=== PATIENT | male | born 1970 | race Caucasian/White ===

== ENCOUNTER 2017-04-03 17:57 | Emergency (ER) | payer SELFPAY ==
[2017-04-03] MEDS ORDERED: Levalbuterol HCl 1.25 MG/0.5 ML Neb NEB ONE (18:08)
[2017-04-03] MEDS ORDERED: Famotidine 20 MG/2 ML SDV IVPUSH ONE (18:09)
[2017-04-03] MEDS ORDERED: Sodium Chloride 0.9% 10 ML Syringe FLUSH PRN (18:09)
[2017-04-03] MEDS ORDERED: methylPREDNISolone Sodium Succinate 125 MG/2 ML SDV IVPUSH ONE (18:09)
[2017-04-03] MEDS ORDERED: Sodium Chloride 0.9% 1,000 ML IV ONE (18:10)
[2017-04-03] MEDS ORDERED: EPINEPHrine 1 MG/ML SDV IM ONE (18:16)
[2017-04-03] MEDS ORDERED: EPINEPHrine 1 MG/ML SDV ONE (18:21)
--- NOTE | 2017-04-03 18:24 | EDM.PDOC ---
ED HPI GENERAL MEDICAL PROBLEM - General Chief Complaint: Allergic Reaction Stated Complaint: Bee sting left index finger Time Seen by Provider: 04/03/17 17:58 Source of Information: Reports: Patient, RN, RN Notes Reviewed History Limitations: Reports: No Limitations - History of Present Illness INITIAL COMMENTS - FREE TEXT/NARRATIVE: Patient presents to the emergency room at [facility] [place] concerned about a possible allergic reaction to a bee sting that occurred about one half hour prior to presentation. The patient states that he was stung on the medial aspect of the left index finger. The patient is concerned because he has red streaking starting from the sting site extending up to the left elbow. The patient is also complaining of mild difficulty breathing as well as his face feeling very flushed. The patient denies any previous bee sting reactions. The patient denies any focal neurological deficit. Patient denies any chest pain. The patient complains that his face feels hot. Onset: Today Onset Date: 04/03/17 Onset Time: 17:15 - Related Data Allergies Allergy/AdvReac Type Severity Reaction Status Date / Time Penicillins Allergy Cannot Verified 04/03/17 18:38 Remember Home Meds: Home Meds Cetirizine [ZyrTEC] 10 mg PO DAILY PRN 04/03/17 [History] Ranitidine [Zantac] 150 mg PO DAILY PRN 04/03/17 [History] predniSONE [Deltasone] 1 tab PO BID 3 Days #6 tablet 04/03/17 [Rx] ED ROS ALLERGIC REACTION - Review of Systems Review Of Systems: See Below Constitutional: Denies: Fever, Chills, Weakness Respiratory: Reports: Shortness of Breath, Wheezing. Denies: Cough Cardiovascular: Denies: Chest Pain, Palpitations Skin: Reports: Pruritis, Wound Neurological: Reports: No Symptoms. Denies: Dizziness, Headache, Numbness, Paresthesia, Tingling ED EXAM GENERAL NO PERIP PULSE - Physical Exam Exam: See Below Exam Limited By: No Limitations General Appearance: Alert, No Apparent Distress, Obese Throat/Mouth: Normal Inspection, Normal Oropharynx, No Airway Compromise Neck: Supple Respiratory/Chest: No Respiratory Distress, Decreased Breath Sounds, Wheezing ( may be chronic due to cigaretter smoking) Cardiovascular: Normal Peripheral Pulses, Regular Rate, Rhythm Neurological: Alert, Oriented Skin Exam: Warm, Dry, Intact, No Rash, Other (pinpoint sting site on medical aspect of left index finger; normal ROM; mild swelling; red streaking extending up to the left elbow) Lymphatic: No Adenopathy Course - Orders/Labs/Meds Orders: Active Orders 24 hr Category Date Time Status TRYPTASE [REF] Stat Lab 04/03/17 18:10 Received Sodium Chloride 0.9% [Normal Saline] 1,000 ml Med 04/03/17 18:10 Active IV ONETIME Sodium Chloride 0.9% [Saline Flush] Med 04/03/17 18:09 Active 10 ml FLUSH ASDIRECTED PRN Peripheral IV Insertion Adult [OM.PC] Routine Oth 04/03/17 18:09 Ordered Medication Orders Sodium Chloride (Normal Saline) 1,000 mls @ 999 mls/hr IV ONETIME ONE Stop: 04/03/17 19:10 Last Admin: 04/03/17 18:25 Dose: 999 mls/hr Sodium Chloride (Saline Flush) 10 ml FLUSH ASDIRECTED PRN PRN Reason: Keep Vein Open Labs: Laboratory Tests 04/03/17 04/03/17 Range/Units 18:10 18:10 WBC 8.8 (4.0-10.0) x10^3/uL RBC 4.99 (4.5-6.0) x10^6/uL Hgb 15.8 (14.0-18.0) g/dL Hct 45.3 (40.0-52.0) % MCV 90.8 (78.0-93.0) fL MCH 31.7 (26.0-32.0) pg MCHC 34.9 (32.0-36.0) g/dL RDW Coeff of Dinh 15.2 H (10.0-15.0) % Plt Count 140 (130-400) x10^3/uL Neut % (Auto) 58.2 (50.0-80.0) % Lymph % (Auto) 31.7 (25.0-50.0) % [place] % (Auto) 8.9 (2.0-11.0) % Eos % (Auto) 1.1 (0.0-4.0) % Baso % (Auto) 0.1 L (0.2-1.2) % Sodium 139 (136-145) mmol/L Potassium 3.8 (3.5-5.1) mmol/L Chloride 102 (98-107) mmol/L Carbon Dioxide 24 (21-32) mmol/L BUN 13 (7-18) mg/dL Creatinine 0.9 (0.70-1.30) mg/dL Est Cr Clr Drug Dosing TNP Estimated GFR (MDRD) > 60 Glucose 184 H (74-106) mg/dL Calcium 9.1 (8.5-10.1) mg/dL Meds: Medications Generic Name Dose Route Start Last Admin Trade Name Freq PRN Reason Stop Dose Admin Sodium Chloride 1,000 mls @ 999 mls/hr 04/03/17 18:10 04/03/17 18:25 Normal Saline IV 04/03/17 19:10 999 mls/hr ONETIME ONE Administration Sodium Chloride 10 ml 04/03/17 18:09 Saline Flush FLUSH ASDIRECTED PRN Keep Vein Open Discontinued Medications Generic Name Dose Route Start Last Admin Trade Name Freq PRN Reason Stop Dose Admin Epinephrine HCl 0.5 mg 04/03/17 18:16 04/03/17 18:26 Adrenalin 1:1000 IM 04/03/17 18:17 Not Given ONETIME ONE Epinephrine HCl Confirm 04/03/17 18:21 04/03/17 18:22 Adrenalin 1:1000 Administered 04/03/17 18:22 0.5 mg Dose Administration 1 mg .ROUTE .STK-MED ONE Famotidine 20 mg 04/03/17 18:09 04/03/17 18:23 Pepcid IVPUSH 04/03/17 18:10 20 mg ONETIME ONE Administration Levalbuterol HCl 1.25 mg 04/03/17 18:08 04/03/17 18:26 Xopenex NEB 04/03/17 18:09 1.25 mg ONETIME ONE Administration Methylprednisolone Sodium Succinate 125 mg 04/03/17 18:09 04/03/17 18:26 Solu-Medrol IVPUSH 04/03/17 18:10 125 mg ONETIME ONE Administration Departure - Departure Time of Disposition: 18:46 Disposition: Home, Self-Care 01 Condition: Good Clinical Impression: Bee sting reaction Qualifiers: Encounter type: initial encounter Injury intent: accidental or unintentional Qualified Code(s): T63.441A - Toxic effect of venom of bees, accidental ( unintentional), initial encounter - Discharge Information Prescriptions: predniSONE [Deltasone] 1 tab PO BID 3 Days #6 tablet Instructions: Anaphylactic Reaction, Bee, Wasp, or Hornet Sting Forms: ED Department Discharge Additional Instructions: 1. Stay well hydrated and rest 2. Take steroid prescription medication for the full coarse, even if symptoms are better 3. May alternate Tylenol/Advil as needed for discomfort 4. See your Primary as symptoms warrant - Problem List Review Problem List Initiated/Reviewed/Updated: Yes - My Orders Last 24 Hours: My Active Orders 04/03/17 18:09 Sodium Chloride 0.9% [Saline Flush] 10 ml FLUSH ASDIRECTED PRN Peripheral IV Insertion Adult [OM.PC] Routine 04/03/17 18:10 TRYPTASE [REF] Stat Sodium Chloride 0.9% [Normal Saline] 1,000 ml IV ONETIME - Assessment/Plan Last 24 Hours: My Active Orders 04/03/17 18:09 Sodium Chloride 0.9% [Saline Flush] 10 ml FLUSH ASDIRECTED PRN Peripheral IV Insertion Adult [OM.PC] Routine 04/03/17 18:10 TRYPTASE [REF] Stat Sodium Chloride 0.9% [Normal Saline] 1,000 ml IV ONETIME
[2017-04-03 18:32] LABS: CHLORIDE,CL 102 mmol/L (98-107); SODIUM,NA 139 mmol/L (136-145)
[2017-04-03 18:43] VITALS: BP 158/98
== END 2017-04-03 19:05 | disposition home or self-care (01) ==
LOC: VM.ED 17:57
DX: T63.441A Toxic effect of venom of bees, accidental (unintentional), initial encounter (principal); Z88.0 Allergy status to penicillin; Z79.899 Other long term (current) drug therapy
CPT/HCPCS: 80048; 83520; 85025; 94640; 96361; 96372; 96374; 96375; 99285; J0171; J2930; J7030; 99284-GF; S0028

== ENCOUNTER 2023-03-31 17:19 | Emergency (ER) | payer SELFPAY ==
[2023-03-31] MEDS ORDERED: Clindamycin Phosphate in D5W 600 MG in Premix Bag 1 BAG IV ONE ×2 (17:32)
[2023-03-31 17:38] VITALS: BP 177/94; PULSE 74
== END 2023-03-31 18:09 | disposition home or self-care (01) ==
LOC: VM.ED 17:19
DX: K04.7 Periapical abscess without sinus (principal); F17.200 Nicotine dependence, unspecified, uncomplicated; I10 Essential (primary) hypertension; Z79.899 Other long term (current) drug therapy; Z88.0 Allergy status to penicillin
CPT/HCPCS: 96365; 99282-25; 99283; J3490

== ENCOUNTER 2023-09-28 13:54 | Emergency (ER) | payer OTHER, BC ==
[2023-09-28 14:05] VITALS: BP 182/97; PULSE 81
== END 2023-09-28 14:20 | disposition home or self-care (01) ==
LOC: VM.ED 13:54
DX: S83.92XA Sprain of unspecified site of left knee, initial encounter (principal); I10 Essential (primary) hypertension; Z88.0 Allergy status to penicillin; Z79.899 Other long term (current) drug therapy; W19.XXXA Unspecified fall, initial encounter
CPT/HCPCS: 99283